=== PATIENT | male | born 1975 | race Caucasian/White ===

== ENCOUNTER 2020-07-06 10:58 | Day surgery (SDC) | payer OTHER, BC ==
[~2020-07-06] VITALS: Ht 177.8 cm; Wt 106.8 kg
[2020-07-06] MEDS ORDERED: PROTONIX40 MG PO (11:19)
[2020-07-06] MEDS ORDERED: CENTRUM MEN'S1 EACH PO (11:20)
[2020-07-06] MEDS ORDERED: PRAVASTATIN SOD10 MG PO (11:20)
[2020-07-06] MEDS ORDERED: BAYER CHEWABLE81 MG PO (11:20)
[2020-07-06] MEDS ORDERED: ASCORBIC ACID500 MG PO (11:20)
[2020-07-06] MEDS ORDERED: FISH OIL 1,0001 CA1 PO (11:20)
[2020-07-06] MEDS ORDERED: NUVIGIL250 MG PO (11:21)
[2020-07-06 11:28] VITALS: BP 146/93; Ht 177.8 cm; Wt 106.8 kg
[2020-07-06] MEDS ORDERED: PERCOCET 10-321 EAC1 PO (13:18)
[2020-07-06] MEDS ORDERED: VISTARIL50 MG PO (13:19)
--- NOTE | 2020-07-06 17:11 | NUR ---
1700 IV REMOVED AND INSTRUCTIONS GIVEN. SLING ON AND PT HAS FRANCISCO AND SPLINT DRESSING. LIGHT TOUCH IN FINGERS AND PINK. DENIES PAIN. VS STABLE AND VOIDED X1
--- NOTE | 2020-07-06 18:41 | OP ---
PATIENT NAME: PATRICK KWON MEDICAL RECORD: [id number] :73 LOCATION:[facility] ADMISSION DATE: SURGEON: JAVIER HURST DO DATE OF OPERATION: 07/06/2020 PROCEDURE PERFORMED: Distal biceps tendon repair. PREOPERATIVE DIAGNOSIS: Right distal biceps tendon rupture. POSTOPERATIVE DIAGNOSIS: Right distal biceps tendon rupture. INDICATIONS: Mr. Kwon is a 45-year-old male who fell off a boxcar he said and ruptured his distal biceps tendon on his right arm approximately close to 2 weeks ago, it was really 11 days I believe, and he got an MRI showing the findings, came to my office yesterday. I told him we need to get this done as soon as possible, so the tendon did not retract even further up his arm. He was aware of that and he was aware of the risks of this including infection, bleeding, damage to the lateral brachial cutaneous nerve, radial nerve PIN, AIN, median nerve and ulnar nerve as well as the vessels in the area. He was aware of all that and also the risk of fracture, re-rupture, continued pain, loss of motion of the elbow and he signed a consent. SURGEON: Javier Hurst DO DESCRIPTION OF PROCEDURE: The patient was taken to the operative suite. After given a block by anesthesia in the preoperative area, given 2 grams of Ancef preoperatively, sedated and LMA was placed, the right upper extremity was then prepped and draped in sterile fashion. Timeout was performed. Everyone was in agreeance with the correct side, site, patient and procedure. I then made a longitudinal incision about 3 fingerbreadths from the crease of the elbow. Made careful dissection down to the antecubital fossa and dissected out and milked down the biceps tendon and pulled it through the incision, had trimmed off the nonviable distal tendon, whipstitched it and then attached the Biomet button to it. I then got to the bicipital tuberosity and put a bicortical drill through and then reamed over that with a 4.5 bicortical and then a 7-mm unicortically. I then put the button through the radius and cinched the tendon down into the radius, fit very well and had good tension. I released tension on the elbow. This was all done with a hand in supination to protect the PIN and [place]'s were used in the field for blunt dissection and for retraction to avoid any damage to vessels or nerves with great visualization. I then tested the arm, brought out in extension and he had near full extension, lacking about 15 degrees, noting good tension on the biceps. The biceps was also back down into the upper arm muscle belly. We then irrigated and Mello Pardo, certified master locksmith closed the site with 2-0 Vicryl in inverted interrupted fashion and 4-0 Monocryl ran on the skin and placed Steri-Strips, Adaptic, 4 x 4's, ABD and cast padding, put him in a 4 x 30 splint posteriorly and secured it with an Thien wrap. He was then awakened and taken to recovery in stable condition. BLOOD LOSS: Minimal. COMPLICATIONS: None. TRANSINT:[id number] Voice Confirmation ID: [id number] DOCUMENT ID: [id number] OPERATIVE REPORT [id number] PATRICK KWON,JAVIER Calderon DO at 1846 CC: [id number] DICTATION DATE: 07/06/20 1541 RELATIONSHIP CONSULTANT: 07/06/20 1747 [facility] 07/06/20 [facility] [address] [place] [address]
[2020-07-06] MEDS ORDERED: LEVAQUIN750 MG PO (23:43)
== END 2020-07-06 17:15 | disposition home or self-care (01) ==
LOC: D.OPS 10:58
PROVIDERS: ATTEND Orthopaedic Surgery
DX: S46.211A Strain of muscle, fascia and tendon of other parts of biceps, right arm, initial encounter (principal); X58.XXXA Exposure to other specified factors, initial encounter

== ENCOUNTER 2020-07-06 21:28 | Emergency (ER) | payer OTHER, BC ==
[~2020-07-06] VITALS: Ht 177.8 cm; Wt 106.8 kg
[~2020-07-06 21:28] MED LIST: ASCORBIC ACID500 MG PO; BAYER CHEWABLE81 MG PO; CENTRUM MEN'S1 EACH PO; FISH OIL 1,0001 CA1 PO; NUVIGIL250 MG PO; PERCOCET 10-321 EAC1 PO; PRAVASTATIN SOD10 MG PO; PROTONIX40 MG PO; VISTARIL50 MG PO
[2020-07-06 21:34] VITALS: BP 164/95; Ht 177.8 cm; Wt 106.8 kg
[2020-07-06 21:50] LABS: BASOPHILS 0.1 % (0-2); EOSINOPHILS 0.1 % (0-7); HEMATOCRIT 45.2 % (42.0-54.0); HEMOGLOBIN 15.5 g/dL (13.5-17.5); IMMATURE GRANULOCYTES 0.3 % (0-5); LYMPHOCYTE ABS# 1.28 10x3/uL (1.32-3.57); LYMPHOCYTES 9.4 % (15-50); MCH 30.6 pg (26.0-34.0); MCHC 34.3 g/dL (31.0-37.0); MCV 89.3 fL (80.0-100.0); MEAN PLATELET VOLUME 9.6 fL (7.4-10.4); MONOCYTES 1.6 % (2-11); NEUTROPHIL ABS# 12.09 10x3/uL (1.78-5.38); NEUTROPHILS 88.5 % (40-80); PLATELET COUNT 305 10x3/uL (130-400); RBC 5.06 10x6/uL (4.20-6.10); RDW 12.1 % (11.5-14.5); WBC 13.7 10x3/uL (4.8-10.8)
[2020-07-06 21:58] LABS: APTT 30.9 SECONDS (22.8-39.4); CALC OSMOLALITY 282 mosm/kg (275-300); CALCIUM 8.8 mg/dL (8.5-10.1); CARBON DIOXIDE 23.3 mmol/L (21.0-32.0); CHLORIDE - SERUM 103 mmol/L (98-107); INR 1.08 (0.85-1.17); POTASSIUM - SERUM 4.5 mmol/L (3.5-5.1); PROTIME 12.9 SECONDS (11.6-15.0); SODIUM 137 mmol/L (136-145); UREA NITROGEN 20 mg/dL (7-18); eGFR NON AFRICAN AMERICAN 85 mL/min (90-120)
[2020-07-06 21:59] LABS: GLUCOSE 213 mg/dL (74-106)
[2020-07-06 22:15] LABS: ALBUMIN 3.7 g/dL (3.4-5.0); ALKALINE PHOSPHATASE 106 U/L (30-120); ALT (SGPT) 30 U/L (10-68); BILIRUBIN - TOTAL 0.49 mg/dL (0.2-1.3); CKMB 0.9 U/L (0.0-3.6); CREATINE KINASE 103 UL (21-232); PRO BNP 19 pg/mL (0-125); PROTEIN - SERUM 7.1 g/dL (6.4-8.2); TROPONIN-I < 0.017 ng/mL (0.000-0.060)
[2020-07-06] MEDS ORDERED: LEVAQUIN750 MG PO (23:43)
== END 2020-07-07 00:27 | disposition home or self-care (01) ==
LOC: D.ER 21:28
PROVIDERS: Emergency Medicine
DX: J18.9 Pneumonia, unspecified organism (principal); K21.9 Gastro-esophageal reflux disease without esophagitis; Z72.0 Tobacco use